=== PATIENT | female | born 1965 | race Caucasian/White ===

== ENCOUNTER 2018-06-20 18:05 | Emergency (ER) | payer MEDICAID ==
[~2018-06-20] VITALS: Ht 167.6 cm; Wt 68.0 kg
[2018-06-20 18:14] VITALS: BP 175/95
[2018-06-21] MEDS ORDERED: FLUCONAZOLE 100 MG TAB PO ONE (00:15)
[2018-06-21] MEDS ORDERED: methylPREDNISolone SOD SUCC 125 MG/2 ML VL IM ONE (00:15)
[2018-06-21] MEDS ORDERED: cefTRIAXone SOD 1,000 MG VL IM ONE (00:15)
== END 2018-06-21 01:24 | disposition home or self-care (01) ==
LOC: EDBD 18:05 → ER 18:34
DX: N39.0 Urinary tract infection, site not specified (principal); I10 Essential (primary) hypertension; Z86.19 Personal history of other infectious and parasitic diseases
CPT/HCPCS: 74176; 96372; 99284; J0696; J2930